=== PATIENT | female | born 1970 | race Caucasian/White ===

== ENCOUNTER → 2019-07-08 | Outpatient (CLI) | payer BC | END | disposition home or self-care (01) | LOC: LAB SHORT 12:33 → LAB EV 12:33 | DX: N39.0 Urinary tract infection, site not specified (principal) | CPT/HCPCS: 87077; 87086; 87186 ==

== ENCOUNTER 2019-09-12 12:55 | Day surgery (SDC) | payer BC ==
[~2019-09-12] VITALS: Ht 172.7 cm; Wt 102.9 kg
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
--- NOTE | 2019-09-12 16:15 | NUR ---
09/12/19 1615 Dipti Krishnamurthy 1CC ENDO MARKER INJECTED INTO SIGMOID MASS REGION
== END 2019-09-12 16:46 | disposition home or self-care (01) ==
LOC: ORSCSDS 12:55
PROVIDERS: Surgery
PROC: 3E0H8GC Introduction of Other Therapeutic Substance into Lower GI, Via Natural or Artificial Opening Endoscopic (ICD-10-PCS; principal; 2019-09-12 14:30)
PROC: 0DBN8ZX Excision of Sigmoid Colon, Via Natural or Artificial Opening Endoscopic, Diagnostic (ICD-10-PCS; principal; 2019-09-12 14:30)
DX: K92.1 Melena (principal); D12.5 Benign neoplasm of sigmoid colon; Z80.0 Family history of malignant neoplasm of digestive organs; K21.9 Gastro-esophageal reflux disease without esophagitis; E21.3 Hyperparathyroidism, unspecified; E05.90 Thyrotoxicosis, unspecified without thyrotoxic crisis or storm; E66.01 Morbid (severe) obesity due to excess calories; Z68.37 Body mass index [BMI] 37.0-37.9, adult
CPT/HCPCS: 88305; J2704; J7120

== ENCOUNTER 2019-10-17 15:25 | Inpatient (IN) | payer BC ==
[~2019-10-17] VITALS: Ht 167.6 cm; Wt 104.2 kg
--- NOTE | 2019-10-18 07:29 | NUR ---
"DAY SURGERY RN | TO OR BOTH DOCTORS AND CIGAR HEAD PERFORATOR HAVE SEEN. REPORT TO ALEJANDRA RABAGO. LABS SENT AND PENDING, OKAYED TO GO BACK TO OR SANS RESULTS BY DR. BLISS AND DR. SALEH. NO ISSUES. BELONGINGS PLACED UNDER BED."
[2019-10-18 07:32] LABS: BASOPHILS ABSOLUTE AUTO 0.04 K/mm3 (0.00-0.23); BASOPHILS PERCENT AUTO 1 % (0-2); EOSINOPHILS ABSOLUTE AUTO 0.14 K/mm3 (0.00-0.68); EOSINOPHILS PERCENT AUTO 2 % (0-6); Hematocrit 37.7 % (33.0-51.0); Hemoglobin 12.1 g/dL (11.5-16.0); IMMATURE GRAN ABSOLUTE AUTO 0.02 K/mm3 (0.00-0.10); IMMATURE GRAN PERCENT AUTO 0 % (0-1); LYMPHOCYTES ABSOLUTE AUTO 2.01 K/mm3 (0.84-5.20); LYMPHOCYTES PERCENT AUTO 31 % (21-46); MONOCYTES ABSOLUTE AUTO 0.56 K/mm3 (0.16-1.47); MONOCYTES PERCENT AUTO 9 % (4-13); Mean Corpuscular HGB 28.5 pg (26.0-34.0); Mean Corpuscular HGB Conc 32.1 g/dL (31.5-36.5); Mean Corpuscular Volume 89 fL (80-100); Mean Platelet Volume 9.8 fL (9.1-12.4); NEUTROPHILS ABSOLUTE AUTO 3.73 K/mm3 (1.96-9.15); NEUTROPHILS PERCENT AUTO 57 % (41-73); Platelet Count 171 K/mm3 (150-400); RDW Coefficient Variation 15.2 % (11.7-14.2); RDW Standard Deviation 49.1 fL (35.1-46.3); Red Blood Cell Count 4.24 M/mm3 (3.80-5.20)
[2019-10-18 07:44] LABS: Anion Gap 5 mmol/L (6-16); Blood Urea Nitrogen 15 mg/dL (8-24); Bun/Creatinine Ratio 19.5 (12.0-20.0); CO2, Blood 28 mmol/L (21-32); Calcium, Blood 8.3 mg/dL (8.5-10.1); Chloride, Blood 107 mmol/L (98-108); Creatinine, Blood 0.77 mg/dL (0.40-1.00); Glomerular Filtration Rate >60 (60-); Glucose, Blood 81 mg/dL (70-99); Potassium, Blood 3.5 mmol/L (3.5-5.5); Sodium, Blood 140 mmol/L (136-145)
--- NOTE | 2019-10-18 12:35 | NUR ---
TARA GARIBAY RN ASSUMED PT CARE AT 1234. PT RESTING QUIETLY. NO COMPLAINTS.
--- NOTE | 2019-10-18 12:37 | NUR ---
"CURRICULUM CONSULTANT | ASSUMED PATIENT CARE VSS. SLEEPY BUT AROUSABLE. ORIENTED. DENIES NAUSEA. STATES SOME PAIN, THOUGH NO PAIN LEVEL GIVEN BY PATIENT."
--- NOTE | 2019-10-18 13:10 | NUR ---
PT ARRIVED TO UNIT FROM PACU A&OX3. VSS. GAUZE W/ TAPE DRESSING TO ABD X4. DRESSING TO UMBILICUS HAS SMALL AMT LIGHT RED DRAINAGE NOTED. REPORTS PAIN 06/07. CALL LIGHT IN REACH. BALTAZAR CATH DRAINING CLEAR YELLOW URINE.
--- NOTE | 2019-10-18 17:27 | NUR ---
SUMMARY NO ACUTE CHANGES SINCE ARRIVING TO UNIT FROM PACU. VSS. MEDICATED PER ORDERS FOR PAIN. PT TOLERATING CLEAR LIQUIDS. HAD SMEAR OF BM IN BED AND AMBULATED TO RESTROOM, PASSED SMALL AMT STOOL. BALTAZAR CATH DRAINING CLEAR YELLOW URINE. CALL LIGHT IN REACH.
[2019-10-19 04:44] LABS: BASOPHILS ABSOLUTE AUTO 0.02 K/mm3 (0.00-0.23); BASOPHILS PERCENT AUTO 0 % (0-2); EOSINOPHILS PERCENT AUTO 0 % (0-6); Hematocrit 35.9 % (33.0-51.0); Hemoglobin 11.5 g/dL (11.5-16.0); IMMATURE GRAN ABSOLUTE AUTO 0.03 K/mm3 (0.00-0.10); IMMATURE GRAN PERCENT AUTO 0 % (0-1); LYMPHOCYTES PERCENT AUTO 11 % (21-46); MONOCYTES ABSOLUTE AUTO 0.78 K/mm3 (0.16-1.47); MONOCYTES PERCENT AUTO 6 % (4-13); Mean Corpuscular Volume 91 fL (80-100); Mean Platelet Volume 10.2 fL (9.1-12.4); NEUTROPHILS PERCENT AUTO 83 % (41-73); Platelet Count 197 K/mm3 (150-400); RDW Standard Deviation 50.2 fL (35.1-46.3); Red Blood Cell Count 3.96 M/mm3 (3.80-5.20); White Blood Cell Count 12.23 K/mm3 (4.00-11.30)
[2019-10-19 05:01] LABS: Anion Gap 5 mmol/L (6-16); Blood Urea Nitrogen 12 mg/dL (8-24); Bun/Creatinine Ratio 16.8 (12.0-20.0); CO2, Blood 27 mmol/L (21-32); Calcium, Blood 8.3 mg/dL (8.5-10.1); Chloride, Blood 109 mmol/L (98-108); Creatinine, Blood 0.72 mg/dL (0.40-1.00); Glomerular Filtration Rate >60 (60-); Glucose, Blood 123 mg/dL (70-99); Potassium, Blood 3.9 mmol/L (3.5-5.5); Sodium, Blood 141 mmol/L (136-145)
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
--- NOTE | 2019-10-19 17:38 | NUR ---
SUMMARY NO ACUTE CHANGES T/O SHIFT. PT PASSING GAS AND VOIDING WELL. PAIN CONTROLLED PER EMAR. INDEPENDENT IN ROOM. ADVANCING DIET TO REGULAR FOR DINNER. USES CALL LIGHT APPROPRIATELY. FAMILY AT BEDSIDE AT THIS TIME.
--- NOTE | 2019-10-19 18:55 | NUR ---
REPORT GIVEN TO ONCOMING SHIFT.
--- NOTE | 2019-10-20 03:58 | NUR ---
SHIFT SUMMARY POD 2 LAP ARUN COLECTOMY PATIENT HAS BEEN ALERT AND ORIENTED, VSS. PT IND IN ROOM. DENIES PAIN DURING THIS SHIFT. HAS BEEN AMBULATING IN ROOM AND VOIDING. DENIES NAUSEA.
[2019-10-20 04:48] LABS: BASOPHILS ABSOLUTE AUTO 0.04 K/mm3 (0.00-0.23); BASOPHILS PERCENT AUTO 1 % (0-2); EOSINOPHILS ABSOLUTE AUTO 0.08 K/mm3 (0.00-0.68); EOSINOPHILS PERCENT AUTO 1 % (0-6); Hematocrit 34.2 % (33.0-51.0); Hemoglobin 10.6 g/dL (11.5-16.0); IMMATURE GRAN ABSOLUTE AUTO 0.01 K/mm3 (0.00-0.10); IMMATURE GRAN PERCENT AUTO 0 % (0-1); LYMPHOCYTES ABSOLUTE AUTO 2.49 K/mm3 (0.84-5.20); LYMPHOCYTES PERCENT AUTO 32 % (21-46); MONOCYTES ABSOLUTE AUTO 0.46 K/mm3 (0.16-1.47); MONOCYTES PERCENT AUTO 6 % (4-13); Mean Corpuscular HGB 28.8 pg (26.0-34.0); Mean Corpuscular Volume 93 fL (80-100); Mean Platelet Volume 9.8 fL (9.1-12.4); NEUTROPHILS ABSOLUTE AUTO 4.63 K/mm3 (1.96-9.15); NEUTROPHILS PERCENT AUTO 60 % (41-73); Platelet Count 159 K/mm3 (150-400); RDW Coefficient Variation 15.4 % (11.7-14.2); RDW Standard Deviation 53.2 fL (35.1-46.3); Red Blood Cell Count 3.68 M/mm3 (3.80-5.20); White Blood Cell Count 7.71 K/mm3 (4.00-11.30)
--- NOTE | 2019-10-21 04:54 | NUR ---
SHIFT SUMMARY PT POD#3. AAOX4. DISCOMFORT CONTROLLED WITH 2 PAIN PILLS X2 THIS SHIFT. NO NAUSEA/EMESIS. ABD INCISION METAL CASKET MAKER WITH MAIRA C/D/I AND APPROXIMATED. PT REPORTING LARGE AMOUNTS FLATUS, NO BM POST OP. INDEPENDENT IN ROOM + OUT IN HALLS TO AMBULATE, CONTINUE TO ENCOURAGE. GOOD PO INTAKE + OUTPUT. PT RESTING WELL T/O NIGHT + RESTING AT THIS TIME WITH CALL LIGHT IN REACH.
[2019-10-21] MEDS ORDERED: HYDR1TAB94 PO (08:16)
--- NOTE | 2019-10-21 12:39 | NUR ---
DISCHARGE PT DISCHARGED HOME FROM UNIT AT APROX 1215. PT GIVEN WRITTEN AND VERBAL DISCHARGE INSTRUCTIONS AND VERBALIZED UNDERSTANDING. IV REMOVED, PT TOLERATED WELL. DECLINED WHEELCHAIR TO CAR, AMBULATED INDEPENDENTLY
== END 2019-10-21 12:15 | disposition home or self-care (01) | DRG 331 ==
LOC: SURS 10-18 05:52 → PRE IP 10-18 07:30 → SURS 10-18 12:59
PROVIDERS: ADMIT Surgery
PROC: 0DTG4ZZ Resection of Left Large Intestine, Percutaneous Endoscopic Approach (ICD-10-PCS; principal; 2019-10-18 07:30)
DX: D12.4 Benign neoplasm of descending colon (principal); K21.9 Gastro-esophageal reflux disease without esophagitis
CPT/HCPCS: 36415; 80048; 85025; 86850; 86900; 86901; 88305; 88307; 88329; A9270-GY; J0690; J0694; J1100; J1650; J1885; J2250; J2370; J2405; J2704; J2710; J3010; J7120